=== PATIENT | male | born 1970 | race Caucasian/White ===

== ENCOUNTER 2017-06-19 12:52 | Emergency (ER) | payer OTHER ==
[~2017-06-19] VITALS: Ht 180.3 cm; Wt 79.4 kg
[2017-06-19 13:48] VITALS: BP 141/89
[2017-06-19] MEDS: KETOROLAC 30 MG/ML VIAL IM ONE (15:39)
[2017-06-19] MEDS: CYCLOBENZAPRINE 10 MG TAB PO ONE (15:39)
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
[2017-06-19 16:27] VITALS: BP 139/90
--- NOTE | 2017-06-19 16:27 | NUR ---
Patient discharged with v/s stable. Written and verbal after care instructions given and explained. Patient alert, oriented and verbalized understanding of instructions. Ambulatory with steady gait. All questions addressed prior to discharge. ID band removed. Patient advised to follow up with PMD. Rx of FLEXERIL, IBUPROFEN given. Patient educated on indication of medication including possible reaction and side effects. Opportunity to ask questions provided and answered.
== END 2017-06-19 16:27 | disposition home or self-care (01) ==
LOC: MED 12:52
DX: S33.5XXA Sprain of ligaments of lumbar spine, initial encounter (principal); S50.01XA Contusion of right elbow, initial encounter; V23.4XXA Motorcycle driver injured in collision with car, pick-up truck or van in traffic accident, initial encounter; Y93.55 Activity, bike riding; Y92.488 Other paved roadways as the place of occurrence of the external cause; Y99.8 Other external cause status
CPT/HCPCS: 72100; 73080; 96372; 99284; J1885